=== PATIENT | female | born 1935 | race Caucasian/White ===

== ENCOUNTER 2018-06-14 05:50 | Day surgery (SDC) | payer OTHER ==
[~2018-06-14 05:50] MED LIST: LEVSIN/SL0.125 MG PO; LOPERAMIDE2 MG PO; NEURONTIN300 MG PO; QUESTRAN PACKET4 GM PO; SYNTHROID75 MCG PO; TOPROL XL25 M1 PO; ZOCOR40 MG PO
== END 2018-06-14 10:15 | disposition home or self-care (01) ==
LOC: AMB-ENDOS 05:50
DX: K63.5 Polyp of colon (principal); K52.89 Other specified noninfective gastroenteritis and colitis; K64.1 Second degree hemorrhoids; I11.9 Hypertensive heart disease without heart failure; E78.00 Pure hypercholesterolemia, unspecified; E03.8 Other specified hypothyroidism; I65.23 Occlusion and stenosis of bilateral carotid arteries; R73.01 Impaired fasting glucose

== ENCOUNTER 2019-07-11 08:45 | Day surgery (SDC) | payer OTHER | END 2019-07-11 14:50 | disposition home or self-care (01) | LOC: AMB-ENDOS 08:45 | DX: K64.1 Second degree hemorrhoids (principal) ==

== ENCOUNTER 2020-10-22 08:54 | Day surgery (SDC) | payer OTHER | END 2020-10-22 13:30 | disposition home or self-care (01) | LOC: AMB-ENDOS 08:54 | PROVIDERS: ATTEND Colon & Rectal Surgery | DX: K62.89 Other specified diseases of anus and rectum (principal); Z20.828 Contact with and (suspected) exposure to other viral communicable diseases ==